=== PATIENT | male | born 1950 | race African-American/Black ===

== ENCOUNTER → 2018-12-20 | Outpatient (CLI) | payer BC ==
--- NOTE | 2018-12-21 15:09 | SLEEP ---
DATE OF STUDY: 12/20/2018 SLEEP STUDY ATTENDING PHYSICIAN: Víctor Olivares MD The patient is 68 years old who weighs 225 pounds with a BMI of 32. The patient's [place] score was 2. The patient underwent a split night study performed at [facility]. During the night study, the patient spent 495 minutes in bed and slept for 394 minutes with a sleep efficiency of 80%. Sleep latency was 19 minutes with a REM latency of 137 minutes. During the initial diagnostic portion of the study, the patient slept for 258 minutes. During that time, there were 23 obstructive apneas, 15 mixed apneas, no central apneas and 128 hypopneas. The patient's apnea hypopnea index was 39 per hour with a supine index of 47 per hour. Very minimal REM sleep was observed during that time. Nocturnal oximetry study revealed a mean oxygen saturation of 92% with the lowest of 87%. A 7.5% of time oxygen saturation remained between 80% and 89%. EKG monitoring revealed normal sinus rhythm, average heart rate was 70 beats per minute, no arrhythmias observed. No significant PLM seen. The patient met the criteria for CPAP initiation. It was started at 5 cm water and titrated up to 9 cm water. At the final pressure, the patient slept for 48 minutes. The patient's AHI was reduced to 6 per hour, mostly from the leak. The patient had supine and short REM sleep. The patient's saturations were above 91%. The patient used medium sized nasal pillows. IMPRESSION: 1. Severe sleep apnea-hypopnea syndrome at an AHI of 39 per hour. 2. Mild nocturnal hypoxia secondary to obstructive sleep apnea, but resolved with CPAP. 3. No clinically significant periodic limb movements. RECOMMENDATIONS: 1. CPAP at 9 cm water completely eliminated the patient's sleep apnea, should be used on a nightly basis. 2. Follow up in 4-6 weeks to assess compliance with CPAP and to document clinical improvement. 3. Weight loss is strongly advised. 4. Avoid [employer] depressants. 5. Caution regarding driving until symptoms of sleep apnea resolve with the use of CPAP. IVON WAGGONER MD DR: NIKKI/tita JOB#: [id number] / [id number]
== END | disposition home or self-care (01) ==
LOC: SLPLAB 18:06
PROVIDERS: ATTEND Internal Medicine
DX: G47.33 Obstructive sleep apnea (adult) (pediatric) (principal); G47.34 Idiopathic sleep related nonobstructive alveolar hypoventilation
CPT/HCPCS: 95810